=== PATIENT | male | born 2000 | race Caucasian/White ===

== ENCOUNTER 2021-01-02 09:15 | Day surgery (SDC) | payer OTHER ==
[~2021-01-02] VITALS: Ht 193 cm; Wt 96.0 kg
[2021-01-02 09:53] VITALS: BP 134/89; PULSE 88; TEMP 98
[2021-01-02 10:50] VITALS: BP 115/69; PULSE 82
--- NOTE | 2021-01-02 10:50 | NUR ---
Pt to to [facility] via cart from [facility]. Pt drowsy, but awake. Pt ambulates to recliner with stand by assistance. Warm blanket provided. Juice and applesauce given per request. Friend in room. Will continue to monitor. Call light within reach.
[2021-01-02 11:05] VITALS: BP 115/76; PULSE 83
--- NOTE | 2021-01-02 11:05 | NUR ---
Pt continues to rest. Tolerating po food and fluids without difficulties. Will continue to monitor. Call light within reach.
[2021-01-02 11:20] VITALS: BP 108/85; PULSE 69
--- NOTE | 2021-01-02 11:20 | NUR ---
Pt continues to rest. Denies needs. Call light within reach.
--- NOTE | 2021-01-02 11:35 | NUR ---
Discharge instructions reviewed. Pt voices understanding. IV site discontinued with all parts intact. Pt up to dress. Call light within reach.
--- NOTE | 2021-01-02 11:47 | NUR ---
Pt escorted to private car via wheel chair. Pt accompanied home by his friend.
== END 2021-01-02 11:48 | disposition home or self-care (01) ==
LOC: SDCO 09:15
DX: K92.1 Melena (principal); K59.00 Constipation, unspecified; K64.0 First degree hemorrhoids; F41.9 Anxiety disorder, unspecified; Z20.822 Contact with and (suspected) exposure to COVID-19
CPT/HCPCS: J2704; J7120